=== PATIENT | female | born 1975 | race Caucasian/White ===

== ENCOUNTER 2017-05-04 14:53 | Emergency (ER) | payer OTHER ==
[~2017-05-04] VITALS: Ht 154.9 cm; Wt 108.9 kg
[~2017-05-04 14:53] MED LIST: AUGMENTIN 875 M1 TAB PO; BACTRIM DS 8001 TA1 PO; CEPHALEXIN500 M1 PO; CLARITIN10 MG PO; HYDROCODONE BIT1 T11 PO; ROBITUSSIN AC 10 MG/ PO; ZITHROMAX Z PA250 MG PO
[2017-05-04 15:30] LABS: BASO # 0.1 10*3/uL (0.0-0.1); BASO % 0.6 % (0.0-1.0); EOS # 0.4 10*3/uL (0.0-0.4); EOS % 4.1 % (1.0-4.0); HEMATOCRIT 42.7 % (37.0-47.0); HEMOGLOBIN 13.9 g/dl (12.0-16.0); LYMPH % 30.7 % (27.0-41.0); MEAN CELL VOLUME 86.4 fl (81.0-99.0); MEAN CORPUSCULAR HGB 28.1 pg (27.0-31.0); MEAN CORPUSCULAR HGB CONC 32.6 g/dl (33.0-37.0); MEAN PLATELET VOLUME 9.5 fl (9.6-12.3); MONO # 0.5 10*3/uL (0.1-1.0); MONO % 5.3 % (3.0-9.0); NEUT # 5.7 10*3/uL (2.3-7.9); NEUT % 58.8 % (47.0-73.0); PLATELET COUNT AUTOMATED 303 10*3/uL (130-400); RED BLOOD COUNT 4.94 10*6/uL (4.10-5.10); RED CELL DISTRI WIDTH 14.5 % (0-14.5); WHITE BLOOD COUNT 9.7 10*3/uL (4.8-10.8)
[2017-05-04 15:48] LABS: ALBUMIN 3.3 gm/dl (3.1-4.5); ALKALINE PHOSPHATASE 57 U/L (45-117); BUN 20 mg/dl (7-24); CHLORIDE 106 mmol/L (98-107); CREATININE 0.64 mg/dL (0.55-1.02); POTASSIUM 3.6 mmol/L (3.5-5.1); SGOT/AST 12 IU/L (3-35); SGPT/ALT 16 U/L (12-78); SODIUM 139 mmol/L (136-145); TOTAL PROTEIN 7.1 gm/dL (6.4-8.2)
[2017-05-04 15:50] LABS: TROPONIN I < 0.015 ng/ml (<0.045)
[2017-05-04 16:08] VITALS: BP 144/88
[2017-05-04] MEDS ORDERED: DIPHENHYDRAMINE50 M1 PO (16:39)
== END 2017-05-04 20:05 | disposition home or self-care (01) ==
LOC: ED 14:53
PROVIDERS: Family Medicine Adult Medicine
DX: T78.40XA Allergy, unspecified, initial encounter (principal); Y92.9 Unspecified place or not applicable

== ENCOUNTER 2018-11-05 09:58 | Emergency (ER) | payer OTHER ==
[~2018-11-05] VITALS: Ht 154.9 cm; Wt 108.9 kg
[~2018-11-05 09:58] MED LIST changes: +DIPHENHYDRAMINE50 M1 PO
[2018-11-05 09:59] VITALS: BP 145/86
[2018-11-05 10:51] LABS: BASO # 0.1 10*3/uL (0.0-0.1); BASO % 0.5 % (0.0-1.0); EOS # 0.4 10*3/uL (0.0-0.4); HEMOGLOBIN 13.4 g/dl (12.0-16.0); LYMPH # 2.4 10*3/uL (1.3-4.4); MEAN CELL VOLUME 86.8 fl (81.0-99.0); MEAN CORPUSCULAR HGB 27.7 pg (27.0-31.0); MEAN CORPUSCULAR HGB CONC 31.9 g/dl (33.0-37.0); MEAN PLATELET VOLUME 9.1 fl (9.6-12.3); MONO # 0.6 10*3/uL (0.1-1.0); NEUT # 5.8 10*3/uL (2.3-7.9); NEUT % 63.1 % (47.0-73.0); PLATELET COUNT AUTOMATED 290 10*3/uL (130-400); RED BLOOD COUNT 4.84 10*6/uL (4.10-5.10); RED CELL DISTRI WIDTH 15.3 % (0-14.5); WHITE BLOOD COUNT 9.2 10*3/uL (4.8-10.8)
[2018-11-05 11:13] LABS: ALBUMIN 3.4 gm/dl (3.1-4.5); ALKALINE PHOSPHATASE 74 U/L (45-117); BUN 17 mg/dl (7-24); CHLORIDE 104 mmol/L (98-107); CREATININE 0.67 mg/dL (0.55-1.02); POTASSIUM 4.1 mmol/L (3.5-5.1); SGOT/AST 13 IU/L (3-35); SGPT/ALT 22 U/L (12-78); SODIUM 138 mmol/L (136-145); TOTAL PROTEIN 7.5 gm/dL (6.4-8.2)
[2018-11-05 11:41] LABS: BILIRUBIN NEGATIVE (NEGATIVE); BLOOD 3+ (NEGATIVE); CLARITY CLOUDY (CLEAR); COLOR RED (YELLOW); GLUCOSE NEGATIVE (NEGATIVE); KETONE TRACE (NEGATIVE); NITRITE POSITIVE (NEGATIVE); PH 6.5 (5.0-9.0)
[2018-11-05 11:49] LABS: LEUKO ESTERASE TRACE (NEGATIVE)
[2018-11-05 11:50] LABS: RBC TNTC rbc/hpf (0-2)
[2018-11-05] MEDS ORDERED: CEFUROXIME AXE500 MG PO (12:15)
[2018-11-05] MEDS ORDERED: MEDROL DOSEPAK4 MG PO (12:15)
[2018-11-05] MEDS ORDERED: NAPROSYN500 MG PO (12:15)
[2018-11-05] MEDS ORDERED: ROBAXIN500 M1 PO (12:15)
== END 2018-11-05 13:03 | disposition home or self-care (01) ==
LOC: ED 09:58
PROVIDERS: Nurse Practitioner Family
DX: M54.41 Lumbago with sciatica, right side (principal); N93.8 Other specified abnormal uterine and vaginal bleeding; N39.0 Urinary tract infection, site not specified; Z79.2 Long term (current) use of antibiotics

== ENCOUNTER 2023-09-27 15:07 | Emergency (ER) | payer OTHER, BC ==
[~2023-09-27] VITALS: Ht 124.4 cm; Wt 89.4 kg
[~2023-09-27 15:07] MED LIST changes: +CEFUROXIME AXE500 MG PO; +MEDROL DOSEPAK4 MG PO; +NAPROSYN500 MG PO; +ROBAXIN500 M1 PO
[2023-09-27 15:35] VITALS: BP 136/102
[2023-09-27] MEDS ORDERED: ACETAMINOPHEN 325 MG TAB PO ONE (15:50)
[2023-09-27] MEDS ORDERED: MEDROL DOSEPAK4 MG PO (17:32)
== END 2023-09-27 17:39 | disposition home or self-care (01) ==
LOC: ED 15:07
DX: J40 Bronchitis, not specified as acute or chronic (principal); Z20.822 Contact with and (suspected) exposure to COVID-19